=== PATIENT | female | born 1945 | race Caucasian/White ===

== ENCOUNTER 2017-08-14 07:25 | Day surgery (SDC) | payer MEDICARE, MEDICAID ==
[2017-08-14 08:02] VITALS: BMI 35.6
[2017-08-14] MEDS ORDERED: Propofol 10 mg/ml Inj (20 ML) ONE ×2 (08:17)
[2017-08-14] MEDS ORDERED: Lidocaine Hydrochloride 5 ML INJ ONE (08:18)
[2017-08-14] MEDS ORDERED: Lactated Ringer's 500 ML IV SCH (08:30)
--- NOTE | 2017-08-14 08:38 | CP.SDSHP ---
Same Day Surgery H & P - History Proposed Procedure: Colonoscopy Pre-Op Diagnosis: Abnormal CT scan - Previous Medical/Surgical History Cardiac: Hypertension Endocrine/Metabolic: Diabetes Misc: Other Comments: Anemia, hyperlipidemia - Allergies Allergies: Allergies No Known Allergies Allergy (Verified 08/14/17 08:01) - Current Medications Current Medications: See reconciliation sheet - Physical Exam General Appearance: WD WN female in NAD Vital Signs: See nurses's notes Neuro: WNL Heart: WNL Lungs: WNL GI: WNL - Impression Impression: Abnormal CT scan Pt. Evaluated Today:Candidate for Anesthesia & Procedure: Yes - Date & Time Date: 08/14/17 Time: 08:39 Short Stay Discharge - Short Stay Discharge Admitting Diagnosis/Reason for Visit: ABNORMAL FINDINGS Disposition: HOME/ ROUTINE
[2017-08-14] MEDS ORDERED: Lactated Ringer's 1,000 ML IV ONE (08:40)
[2017-08-14 09:27] VITALS: TEMP 97.5; O2SAT 100
[2017-08-14 10:51] VITALS: BP 131/67; PULSE 68; RESP 16
== END 2017-08-14 10:28 | disposition home or self-care (01) ==
LOC: C.ENDO 07:25
PROVIDERS: ATTEND Internal Medicine Gastroenterology
DX: C18.0 Malignant neoplasm of cecum (principal); K57.30 Diverticulosis of large intestine without perforation or abscess without bleeding; D12.5 Benign neoplasm of sigmoid colon
CPT/HCPCS: 45380; 82948; 88305; J2704; J7120